=== PATIENT | female | born 1975 | race Two or more races ===

== ENCOUNTER 2017-06-10 11:34 | Emergency (ER) | payer SELFPAY ==
[~2017-06-10] VITALS: Ht 167.6 cm; Wt 68.0 kg
[2017-06-10 11:34] VITALS: BP 131/75
--- NOTE | 2017-06-10 11:57 | Emergency Room Report ---
History of Present Illness General Chief Complaint: Multiple Trauma/Fall Source: Patient, EMS Present Illness HPI Patient reports that she had test last week which was coming up is positive she has not seen her doctor as of yet Her last menstrual cycle was in April but did not feel to be normal as it was very light Patient reports a fall earlier onto her lower back region And has been having pain in the lower abdominal and suprapubic area Patient reports increased urination Denies any chest pain or short of breath denies any weakness in the lower extremities Allergies: Coded Allergies: No Known Allergies (Unverified , 06/10/17) Patient History Past Medical History: see triage record Pertinent Family History: none Now: Yes Reviewed Nursing Documentation: PMH: Agreed, PSxH: Agreed Nursing Documentation-PMH Past Medical History: No History, Except For Hx Hypertension: Yes Hx Diabetes: Yes Review of Systems All Other Systems: negative except mentioned in HPI Physical Exam Vital Signs Date Time Temp Pulse Resp B/P (MAP) Pulse Ox O2 Delivery O2 Flow Rate FiO2 06/10/17 11:24 98.2 62 20 139/80 100 Room Air Sp02 EP Interpretation: reviewed, normal General Appearance: well appearing, no apparent distress Head: normocephalic, atraumatic Eyes: bilateral eye PERRL, bilateral eye EOMI ENT: hearing grossly normal, normal pharynx, TMs + canals normal, uvula midline Neck: full range of motion, supple, no meningismus, no bony tend Respiratory: lungs clear, normal breath sounds, no rhonchi, no respiratory distress, no retraction, no accessory muscle use Cardiovascular #1: normal peripheral pulses, regular rate, rhythm, no edema, no gallop, no JVD, no murmur Gastrointestinal: normal bowel sounds, non tender, soft, no mass, no organomegaly, non-distended, no guarding, no hernia, no pulsatile mass, no rebound Genitourinary: no CVA tenderness Musculoskeletal: normal inspection Neurologic: oriented x3, responsive, budget and policy analyst III-XII nml as tested, motor strength/ tone normal, sensory intact Psychiatric: mood/affect normal Skin: normal color, no rash, warm/dry, palpation normal Lymphatic: normal inspection, no adenopathy Medical Decision Making Diagnostic Impression: Primary Impression: Contusion ER Course Patient's test was negative Pelvic ultrasound did not show any acute disease x-ray imaging was also negative Patient requesting Accu-Chek as she was told that she also had diabetes her blood sugar was 81 Patient continues to do well x-ray imaging was also done since the patient was negative for which was negative and the patient is stable for close followup UA: Negative , negative bacteria Other X-Ray Diagnostic Results Other X-Ray Diagnostic Results : X-Ray ordered: pelvic # of Views/Limited Vs Complete: 1 View Indication: Pain Interpretation: no dislocation, no soft tissue swelling, no fractures Impression: No acute disease Electronically Signed by: Radha Felix, CT/MRI/US Diagnostic Results CT/MRI/US Diagnostic Results : Impression pelvic ultrasound:Impression: No intrauterine demonstrated. The study as obtained is limited. Right ovary not visualized Last Vital Signs Date Time Temp Pulse Resp B/P (MAP) Pulse Ox O2 Delivery O2 Flow Rate FiO2 06/10/17 11:34 97.4 67 18 131/75 98 Room Air Status: improved Disposition: HOME, SELF-CARE Condition: Stable Scripts Ibuprofen* (MOTRIN*) 600 Mg Tablet 600 MG ORAL Q8H Y for For Pain, #30 TAB 0 Refills Prov: RADHA FELIX D.O. 06/10/17 Additional Instructions: Patient is provided with the discharge instructions notified to follow up with primary doctor in the next 2-3 days otherwise return to the er with any worsening symptoms. Please note that this report is being documented using [employer]Star technology. This can lead to erroneous entry secondary to incorrect interpretation by the dictating instrument. RADHA FELIX D.O. Jun 10, 2017 11:57
[2017-06-10 12:37] LABS: APPEARANCE,URINE CLEAR; BILIRUBIN, URINE NEGATIVE (NEGATIVE); COLOR,URINE PALE YELLOW; GLUCOSE, URINE (UA) NEGATIVE (NEGATIVE); KETONES,URINE NEGATIVE (NEGATIVE); LEUKOCYTE ESTERASE ,URINE 2+ (NEGATIVE); NITRITE,URINE NEGATIVE (NEGATIVE); PH,URINE 6 (4.5-8.0); PROTEIN,URINE NEGATIVE (NEGATIVE); UROBILINOGEN,URINE NORMAL MG/DL (0.0-1.0)
[2017-06-10 13:30] VITALS: BP 123/75
[2017-06-10] MEDS ORDERED: IBUPROFEN600 MG ORAL (13:42)
[2017-06-10 14:00] VITALS: BP 123/75
--- NOTE | 2017-06-10 14:19 | Diagnostic Imaging Report ---
Indication: pain Findings: Single AP view of the pelvis was performed. No acute fracture is identified. Bilateral hips and sacroiliac joints appear symmetric.There is no malalignment. Soft tissues are unremarkable. Impression: No acute findings.
--- NOTE | 2017-06-10 15:06 | Diagnostic Imaging Report ---
Indication:Pelvic pain. Patient states she is and presents with pelvic trauma. Technique: Grayscale and duplex Doppler imaging of the pelvis performed utilizing a transabdominal scan. The patient declined endovaginal scan at this time. Comparison: None Findings: The study is limited as only transabdominal scan was performed. Intrauterine not demonstrated. The endometrium is mildly thickened measuring about 11-12 mm. The uterus measures approximately 8 x 6 x 5 cm. The left ovary 3.4 x 2.8 x 2.2 CM. The right ovary is not seen. There is no free fluid. Impression: No intrauterine demonstrated. The study as obtained is limited. Right ovary not visualized
== END 2017-06-10 14:00 | disposition home or self-care (01) ==
LOC: EDBD 11:34 → EMR 12:09
DX: T14.8XXA Other injury of unspecified body region, initial encounter (principal); E11.9 Type 2 diabetes mellitus without complications; I10 Essential (primary) hypertension; R10.2 Pelvic and perineal pain; W18.30XA Fall on same level, unspecified, initial encounter; Y92.9 Unspecified place or not applicable
CPT/HCPCS: 72170; 76856; 81003; 81025; 82962; 99284